=== PATIENT | male | born 1965 | race Caucasian/White ===

== ENCOUNTER 2024-01-07 17:45 | Inpatient (IN) | payer BC ==
[2024-01-07] MEDS ORDERED: Acetaminophen 325 MG TAB PO PRN (20:10)
[2024-01-07 20:28] LABS: Troponin I 0.054 ng/mL (< 0.028)
[2024-01-07 20:56] LABS: Cardiac Risk 4.7 (Less than 4.5); Cholesterol 253 mg/dl (< 200 Desired); HDL Cholesterol 54 mg/dL (>60 Neg Risk); Hemoglobin A1c 5.2 % (4.0-6.0); LDL Cholesterol, Calculated 162 mg/dL; Magnesium 2.1 mg/dL (1.6-2.6); Phosphorus 3.5 mg/dL (2.3-4.7); Triglycerides 184 mg/dL (Less than 150)
[2024-01-07 23:38] LABS: Troponin I 0.051 ng/mL (< 0.028)
[2024-01-08 04:33] LABS: Amphetamine Not Detected (NotDetected); Barbiturates Screen Not Detected (NotDetected); Benzodiazepine Screen Not Detected (NotDetected); Cocaine Metabolite Screen Not Detected (NotDetected); Methadone Not Detected (NotDetected); Methamphetamine Not Detected (NotDetected); Opiate Screen Not Detected (NotDetected); Oxycodone Screen Not Detected (NotDetected); Phencyclidine (PCP) Not Detected (NotDetected); THC/Cannabinoid Screen Not Detected (NotDetected); Tricyclic Screen Not Detected (NotDetected)
[2024-01-08 05:26] LABS: #Basophils 0.09 10x3/uL (0.0-0.2); %Basophils 1.1 % (0.0-1.0); %Eosinophils 3.7 % (0.0-10.0); %Lymphocytes 32.7 % (21.0-51.0); %Monocytes 9.8 % (0.0-10.0); %Neutrophils 52.5 % (42.0-75.0); Hemoglobin 15.3 g/dL (14.0-18.0); Mean Corpuscular Hemoglobin 31.1 pg (27.0-31.0); Mean Corpuscular Volume 91.5 fL (78.0-98.0); Mean Platelet Volume 9.7 fL (7.4-10.4); Platelet Count 154 10x3/uL (130-400); RBC Distribution Width 13.2 % (11.5-14.5); Red Blood Cell (RBC) Count 4.92 mill/uL (4.70-6.10)
[2024-01-08 05:42] LABS: Anion Gap 13 mmol/L (10-20); BUN (Urea Nitrogen) 14 mg/dL (8.4-25.7); Calc. Creatinine Clearance 123 mL/min (70-130); Carbon Dioxide 27 mmol/L (22-29); Chloride 105 mmol/L (98-107); Estimated GFR 72; Glucose 111 mg/dL (70-105); Potassium 4.1 mmol/L (3.5-5.1); Sodium 141 mmol/L (136-145)
[2024-01-08] MEDS: Enoxaparin 40 MG (0.4 mL) SYRINGE SC SCH ×2 (08:57→21:17)
[2024-01-08] MEDS: Atorvastatin Calcium 10 MG TAB PO SCH (08:57)
[2024-01-08] MEDS: Lisinopril 10 MG TAB PO SCH (08:58)
[2024-01-08] MEDS: Atorvastatin Calcium 40 MG TAB PO SCH (21:17)
[2024-01-08] MEDS: hydrALAZINE 20 MG/ML VIAL SLOW IVP SCH (22:38)
[2024-01-08 22:49] VITALS: BMI 40.6
[2024-01-09] MEDS: hydrALAZINE 20 MG/ML VIAL SLOW IVP PRN (02:48)
[2024-01-09 04:53] LABS: Anion Gap 14 mmol/L (10-20); BUN (Urea Nitrogen) 13 mg/dL (8.4-25.7); Calc. Creatinine Clearance 164 mL/min (70-130); Calcium 9.2 mg/dL (7.8-10.44); Carbon Dioxide 22 mmol/L (22-29); Chloride 109 mmol/L (98-107); Estimated GFR 100; Glucose 111 mg/dL (70-105); Potassium 3.7 mmol/L (3.5-5.1); Sodium 141 mmol/L (136-145)
[2024-01-09 04:54] LABS: #Basophils 0.07 10x3/uL (0.0-0.2); %Eosinophils 4.1 % (0.0-10.0); %Lymphocytes 36.9 % (21.0-51.0); %Monocytes 9.7 % (0.0-10.0); Hematocrit 47.8 % (42.0-52.0); Hemoglobin 16.4 g/dL (14.0-18.0); Mean Corpuscular HGB CONC 34.3 g/dL (32.0-36.0); Mean Corpuscular Hemoglobin 31.1 pg (27.0-31.0); Mean Corpuscular Volume 90.5 fL (78.0-98.0); Platelet Count 140 10x3/uL (130-400); RBC Distribution Width 12.9 % (11.5-14.5); Red Blood Cell (RBC) Count 5.28 mill/uL (4.70-6.10)
[2024-01-09] MEDS: Lisinopril 20 MG TAB PO SCH (08:54)
[2024-01-09] MEDS: Hydrochlorothiazide 25 MG TAB PO SCH (08:55)
[2024-01-09 12:29] LABS: Troponin I 0.047 ng/mL (< 0.028)
[2024-01-09] MEDS ORDERED: Communication Order-Pharmacy FS SCH (17:15)
[2024-01-09] MEDS ORDERED: Labetalol HCl 100 MG/20 ML VIAL SLOW IVP PRN (17:21)
[2024-01-09] MEDS: Amlodipine 5 MG TAB PO SCH (17:49)
[2024-01-10 04:13] VITALS: TEMP 97.6
[2024-01-10 05:10] LABS: Anion Gap 14 mmol/L (10-20); BUN (Urea Nitrogen) 11 mg/dL (8.4-25.7); Calc. Creatinine Clearance 174 mL/min (70-130); Calcium 9.7 mg/dL (7.8-10.44); Carbon Dioxide 22 mmol/L (22-29); Chloride 106 mmol/L (98-107); Estimated GFR 101; Glucose 103 mg/dL (70-105); Potassium 4.4 mmol/L (3.5-5.1); Sodium 138 mmol/L (136-145)
[2024-01-10 05:26] LABS: #Basophils 0.09 10x3/uL (0.0-0.2); %Basophils 1.1 % (0.0-1.0); %Eosinophils 4.4 % (0.0-10.0); %Lymphocytes 34.9 % (21.0-51.0); %Monocytes 10.2 % (0.0-10.0); %Neutrophils 49.1 % (42.0-75.0); Hemoglobin 17.1 g/dL (14.0-18.0); Mean Corpuscular HGB CONC 34.9 g/dL (32.0-36.0); Mean Corpuscular Hemoglobin 31.7 pg (27.0-31.0); Mean Corpuscular Volume 90.9 fL (78.0-98.0); Mean Platelet Volume 10.1 fL (7.4-10.4); Platelet Count 140 10x3/uL (130-400); RBC Distribution Width 13.1 % (11.5-14.5); Red Blood Cell (RBC) Count 5.39 mill/uL (4.70-6.10)
[2024-01-10] MEDS ORDERED: fentaNYL 50 mcg/mL 1 mL Vial ONE (06:22)
[2024-01-10] MEDS ORDERED: Heparin 10,000 UNITS/ 10 ML VIAL ONE (06:23)
[2024-01-10] MEDS ORDERED: Nitroglycerin 50 MG/250 ML BOT 0 ML ONE (06:23)
[2024-01-10] MEDS ORDERED: Midazolam HCl 2 mg/2 ml Vial ONE (06:23)
[2024-01-10] MEDS ORDERED: Atropine Sulfate 1 mg/10 ml Syringe ONE (06:23)
[2024-01-10] MEDS: Amlodipine 5 MG TAB PO SCH (08:47)
[2024-01-10 08:58] VITALS: BP 200/101
== END 2024-01-10 10:22 | disposition home or self-care (01) | DRG 307 ==
LOC: 2NO 18:28 → INTOOBSV 18:28 → OBSVTOIN 01-09 20:42
PROVIDERS: ADMIT Student in an Organized Health Care Education/Training Program; ATTEND Student in an Organized Health Care Education/Training Program
DX: I35.0 Nonrheumatic aortic (valve) stenosis (principal); I10 Essential (primary) hypertension; I34.0 Nonrheumatic mitral (valve) insufficiency; E78.00 Pure hypercholesterolemia, unspecified; Z79.899 Other long term (current) drug therapy; Z98.890 Other specified postprocedural states
CPT/HCPCS: 36415; 80048; 80061; 80306; 83036; 83735; 84100; 84443; 84484; 85025; 93005; 93010; 93306; 96372; 96374; 96376; G0378; J0360; J0461; J1644; J1650; J2250; J3010